=== PATIENT | female | born 1950 | race African-American/Black ===

== ENCOUNTER 2017-07-06 11:02 | Day surgery (SDC) | payer OTHER, MEDICARE ==
[~2017-07-06 11:02] MED LIST: BALANCED SALT SOLN 500 ML OPH IRRIG; METOCLOPRAMIDE 10 MG INJ; ONDANSETRON 4 MG INJ
[2017-07-06] MEDS ORDERED: TROPICAMIDE 1% 15 ML OPH OPER (12:00)
[2017-07-06] MEDS ORDERED: ACETAZOLAMIDE (SR) 500 MG CAP PO (12:00)
[2017-07-06] MEDS ORDERED: EPINEPHrine 1 MG INJ ×2 (12:10→13:40)
[2017-07-06] MEDS ORDERED: DEXAMETHASONE 4 MG/ML 1 ML INJ (12:10)
[2017-07-06] MEDS ORDERED: CEFAZOLIN 1 GM INJ (12:10)
[2017-07-06] MEDS ORDERED: LIDOCAINE 1% (MPF) 10 ML INJ (12:10)
[2017-07-06] MEDS: PROPARACAINE 0.5% 15 ML OPH OPER (12:28)
[2017-07-06] MEDS: CIPROFLOXACIN 0.3% 2.5 ML OPH OPER (12:29)
[2017-07-06] MEDS: LIDOCAINE 3.5% GEL TUBE OPER (12:30)
[2017-07-06] MEDS: PHENYLephrine 2.5% 15 ML OPH OPER (12:30)
[2017-07-06] MEDS: TROPICAMIDE 1% 3 ML OPH OPER (12:40)
[2017-07-06] MEDS: DEXAMETHASONE 4 MG/ML 1 ML INJ INJ (12:45)
[2017-07-06] MEDS: LIDOCAINE 1% (MPF) 5 ML VIAL INJ (12:45)
[2017-07-06] MEDS: CEFAZOLIN 1 GM INJ INJ (12:45)
[2017-07-06] MEDS ORDERED: SODIUM HYALURONATE 14 MG/ML SYG (12:50)
[2017-07-06] MEDS ORDERED: PROPARACAINE 0.5% 15 ML OPH OPER (13:00)
[2017-07-06] MEDS ORDERED: LIDOCAINE 100 MG SYRINGE (13:21)
[2017-07-06] MEDS ORDERED: PROPOFOL 20 ML (13:21)
[2017-07-06] MEDS ORDERED: METOCLOPRAMIDE 10 MG INJ IV (13:30)
[2017-07-06] MEDS ORDERED: hydrALAzine 20 MG INJ IV (13:30)
[2017-07-06] MEDS ORDERED: LABETALOL HCL 20MG INJ IV (13:30)
[2017-07-06] MEDS ORDERED: HYDROmorphONE (0.2 MG/ML) 10ML SYG IV (13:30)
[2017-07-06] MEDS ORDERED: FENTAnyl 50 MCG/ML VIAL IV ×2 (13:30)
[2017-07-06] MEDS ORDERED: DIPHENHYDRAMINE 50 MG INJ IV (13:30)
[2017-07-06] MEDS ORDERED: ONDANSETRON 4 MG INJ IV (13:30)
[2017-07-06] MEDS ORDERED: MIDAZOLAM 1 MG/ML 2 ML INJ (13:36)
[2017-07-06] MEDS ORDERED: FENTAnyl 50 MCG/ML VIAL (13:39)
[2017-07-06] MEDS ORDERED: LIDOCAINE 4% (MPF) 5 ML INJ (13:40)
[2017-07-06] MEDS ORDERED: ACETAMINOPHEN 1000MG/100ML IV 100 ML (14:31)
== END 2017-07-06 15:46 | disposition home or self-care (01) ==
LOC: SDS 11:02
DX: H25.12 Age-related nuclear cataract, left eye (principal)
CPT/HCPCS: 66984; 82962

== ENCOUNTER 2017-10-23 05:35 | Day surgery (SDC) | payer OTHER, MEDICAID ==
[2017-10-23] MEDS: PROPARACAINE 0.5% 15 ML OPH RIGHT EYE (06:41)
[2017-10-23] MEDS: TROPICAMIDE 1% 3 ML OPH RIGHT EYE (06:44)
[2017-10-23] MEDS: PHENYLephrine 2.5% 5 ML OPH RIGHT EYE (06:54)
[2017-10-23] MEDS: [UNRECOGNIZED DRUG - OTHER] OPER (06:56)
[2017-10-23] MEDS: CIPROFLOXACIN 0.3% OPER (06:56)
[2017-10-23] MEDS ORDERED: GLUCOSE GEL 15 GRAM TUBE BUCCAL (07:00)
[2017-10-23] MEDS ORDERED: DEXTROSE 50% 50 ML SYRINGE IV ×2 (07:00)
[2017-10-23] MEDS ORDERED: GLUCAGON 1 MG INJ IM (07:00)
[2017-10-23] MEDS ORDERED: GLUCOSE GEL 15 GRAM TUBE PO ×2 (07:00)
[2017-10-23] MEDS: INSULIN ASPART [NOVOLOG] 3 ML PEN SC (07:05)
[2017-10-23] MEDS ORDERED: DEXAMETHASONE 4 MG/ML 1 ML INJ (07:15)
[2017-10-23] MEDS ORDERED: EPINEPHrine 1 MG INJ ×2 (07:15)
[2017-10-23] MEDS ORDERED: CEFAZOLIN 1 GM INJ (07:15)
[2017-10-23] MEDS: LIDOCAINE OPER (07:18)
[2017-10-23] MEDS ORDERED: LIDOCAINE 1% (MPF) 10 ML INJ (07:23)
[2017-10-23] MEDS: DEXAMETHASONE 4 MG/ML 1 ML INJ INJ (07:30)
[2017-10-23] MEDS: SODIUM HYALURONATE 14 MG/ML SYG IO (07:30)
[2017-10-23] MEDS: CEFAZOLIN 1 GM INJ INJ (07:30)
[2017-10-23] MEDS ORDERED: PROPOFOL 0 ML (08:10)
[2017-10-23] MEDS ORDERED: MIDAZOLAM 1 MG/ML 2 ML INJ ×2 (08:11→08:27)
[2017-10-23] MEDS ORDERED: FENTAnyl 50 MCG/ML VIAL (08:11)
[2017-10-23] MEDS ORDERED: hydrALAzine 20 MG INJ (08:25)
[2017-10-23] MEDS ORDERED: FENTAnyl 50 MCG/ML VIAL IV (09:30)
[2017-10-23] MEDS ORDERED: OXYCODONE/ACETAMINOPHEN (5/325) TAB PO (09:30)
[2017-10-23] MEDS ORDERED: ONDANSETRON 4 MG INJ IV (09:30)
[2017-10-23] MEDS ORDERED: DIPHENHYDRAMINE 50 MG INJ IV (09:30)
[2017-10-23] MEDS ORDERED: MEPERIDINE 25 MG INJ IV (09:30)
[2017-10-23] MEDS ORDERED: hydrALAzine 20 MG INJ IV (09:30)
[2017-10-23] MEDS ORDERED: PROCHLORPERAZINE 10 MG INJ IV (09:30)
[2017-10-23] MEDS ORDERED: LABETALOL HCL 20MG INJ IV (09:30)
[2017-10-23] MEDS ORDERED: HYDROmorphONE 1 MG/5 ML IV SYRINGE IV (09:30)
[2017-10-23] MEDS: ACETAZOLAMIDE 250 MG TAB PO (10:33)
[2017-10-24] MEDS ORDERED: ACCU-CHEK XX (02:00)
== END 2017-10-23 10:30 | disposition home or self-care (01) ==
LOC: SDS 05:35
DX: H26.9 Unspecified cataract (principal); I10 Essential (primary) hypertension; E11.9 Type 2 diabetes mellitus without complications; E78.5 Hyperlipidemia, unspecified
CPT/HCPCS: 66984; 82962